=== PATIENT | female | born 1950 ===

== ENCOUNTER 2021-07-29 08:02 | Outpatient (CLI) | payer OTHER | END 2021-07-29 08:04 | disposition home or self-care (01) | LOC: NUCLEAR 08:02 | PROVIDERS: ATTEND Internal Medicine Cardiovascular Disease | DX: I11.9 Hypertensive heart disease without heart failure (principal); I20.8 Other forms of angina pectoris | CPT/HCPCS: 78452; 93017; A9505; J1250 ==